=== PATIENT | male | born 1945 | race Caucasian/White ===

== ENCOUNTER → 2017-01-10 | Outpatient (CLI) | payer MEDICARE, OTHER ==
[~2017-01-10] MED LIST: ASPIRIN PO; ATENOLOL PO; AVODART0.5 MG PO; COUMADIN; DOCUSATE SODIU100 MG PO; HCTZ PO; ISOSORBIDE MONO20 M1 PO; ISOSORBIDE PO; LIPITOR PO; METOPROLOL SUCC50 MG PO; SERZONE PO; VASOTEC PO
--- NOTE | ~2017-01-10 | CT70 ---
[facility] A Service of [facility] RADIOLOGY TEXT RESULTS PATIENT: JOLIE VARGAS LOCATION: [facility] : 47 UNIT #: [id number] AGE: [address]: Nicholas Jim MD SEX: M ORDER DR: [id number] [facility] [address] [place], [place] [address] [id number] O MR#: [id number] #: [id number] NAME: JOLIE VARGAS. : 1945 SEX: M STUDY DATE/TIME: 01/10/2017 11:26 UNIT: [facility] ROOM: STUDY DESCRIPTION: CT Head WWo Contrast Attending Physician: Nicholas Jim M.D. Referring Physician: Nicholas Jim M.D. Ordering Physician: Nicholas Jim M.D. Primary Care Physician: Rio Reyes M.D. MEDICAL IMAGING REPORT This report is preliminary unless electronic signature is present EXAM Head CT with and without contrast DATE OF STUDY 01/10/[address] with and without IV contrast. This CT exam was performed with one or more of the following radiation dose reduction techniques: automatic exposure control, adjustment of mA and/or kV according to patient size, and iterative reconstruction. COMPARISON 09/09/2013 CLINICAL HISTORY Transient episode of left monocular vision loss with persistent left eye visual disturbance. FINDINGS There is left frontal and parietal cortical encephalomalacia unchanged since the prior exam. There is a small area of left posterior frontal cortical encephalomalacia also unchanged since the study of 2012. There is no intracranial mass or hemorrhage or evidence of acute ischemia and postcontrast images show no abnormal enhancement. The extracranial soft tissues, skull base and calvarium are unremarkable except for some chronic bony maxillary sinus thickening left greater than right and some slight right anterior ethmoid mucosal thickening. IMPRESSION Stable chronic changes in the brain. No acute intracranial abnormality. Dictated by... [facility] A Service of [facility] RADIOLOGY TEXT RESULTS PATIENT: JOLIE VARGAS LOCATION: [facility] : 47 UNIT #: [id number] AGE: [address]: Nicholas Jim MD SEX: M ORDER DR: Kolton Nazario M.D. THIS IS AN ELECTRONICALLY VERIFIED REPORT Kolton Nazario M.D. at 01/14/2017 5:03 PM TEV/to TD: 01/10/2017 14:39 JOB #: [id number] MEDICAL IMAGING REPORT Page 1 of 1 COPY
[2017-01-10 11:26] LABS: POC - CREATININE 0.83 mg/dL (0.64-1.27); POC - GFR >60.0 mL/min (>60)
== END | disposition home or self-care (01) ==
LOC: CCAT 10:48
PROVIDERS: Ophthalmology Retina Specialist
DX: H53.8 Other visual disturbances (principal)
CPT/HCPCS: 70470; 82565; Q9967